=== PATIENT | female | born 1985 | race Asian ===

== ENCOUNTER → 2025-09-16 13:49 | Outpatient (CLI) | payer OTHER, SELFPAY | PROVIDERS: Family Provider Family Medicine; PCP Family Medicine; Referring Provider Physician Assistant; Visit Provider Surgery | DX: T22.311A Burn of third degree of right forearm, initial encounter (principal); T23.301A Burn of third degree of right hand, unspecified site, initial encounter; X10.2XXA Contact with fats and cooking oils, initial encounter | CPT/HCPCS: 16020; 99203; 99212 ==

== ENCOUNTER → 2025-09-23 10:34 | Outpatient (CLI) | payer OTHER, SELFPAY | LOC: WC 10:35 | PROVIDERS: Family Provider Family Medicine; PCP Family Medicine; Referring Provider Physician Assistant; Visit Provider Surgery | DX: T22.311A Burn of third degree of right forearm, initial encounter (principal); T23.301A Burn of third degree of right hand, unspecified site, initial encounter | CPT/HCPCS: 16020; 99213 ==

== ENCOUNTER → 2025-09-30 10:30 | Outpatient (CLI) | payer OTHER, SELFPAY | LOC: WC 10:31 | PROVIDERS: Family Provider Family Medicine; PCP Family Medicine; Referring Provider Family Medicine; Visit Provider Surgery | DX: T22.311A Burn of third degree of right forearm, initial encounter (principal); T31.0 Burns involving less than 10% of body surface; L98.8 Other specified disorders of the skin and subcutaneous tissue; L92.9 Granulomatous disorder of the skin and subcutaneous tissue, unspecified | CPT/HCPCS: 16020 ==